=== PATIENT | male | born 1970 | race Caucasian/White ===

== ENCOUNTER 2023-09-19 15:52 | Outpatient (RCR) | payer BC, SELFPAY ==
[2023-09-19 16:03] VITALS: BP_SYST 132
--- NOTE | 2023-09-19 17:10 | OPREHPOC ---
Outpatient Therapy Plan of Care This is a Multidisciplinary Plan of Care that may contain components documented by all disciplines (PT, OT, and ST.) PT Problem 1 PT Problem #1 Knowledge Deficit PT Goal 1 Goal Patient to demonstrate independence with HEP Target Visit 4 PT Problem 2 PT Problem #2 Pain PT Goal 1 Goal 1. Patient to report highest pain at 4/10 2. Patient to report ability to complete work day with no increase in R shoulder pain Target Visit 8 PT Problem 3 PT Problem #3 Impaired Range of Motion PT Goal 1 Goal 1. Patient to demonstrate 160 deg of R shoulder flexion to reach into cabinets at PLOF 2. Patient to demonstrate functional R IR reach to lumbar spine Target Visit 8 PT Problem 4 PT Problem #4 Impaired Strength PT Goal 1 Goal Patient to demonstrate 5/5 R shoulder strength to return to work duties at PLOF Target Visit 10
--- NOTE | 2023-09-19 17:10 | PTOPEVAL1 ---
Assessment and note entered by Lily Mireles DPT Evaluation Information Assessment Status Evaluation Diagnosis R shoulder pain Onset 09/14/23 Subjective Information Patient reports he is having R shoulder pain. He reports over the summer he jumped up to close a door and felt a pull and a pop in his R shoulder. He reports pain is over the deltoid region. 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 Reaching into cabinets, reaching into his back pocket and bathing all increase his pain. He reports he has not had any imagining done. No RTMD scheduled. Reported Pain Level Pain Score 4: Self Report Assessment PT Clinical Summary Mr. Webster is a 53 year old male who presents to PT with R shoulder pain. He demonstrates decreased R shoulder ROM with GHJ hypomobility, decreased R shoulder strength and impaired posture limiting his ability to reach into cabinets, perform work duties, and reach into his back pocket. He would benefit from skilled PT to address impairments and return to PLOF. Plan of Care Interventions Electrical Stimulation,Hot Pack/Cold Pack,Manual Therapy,Neuro Re-education,Patient/Caregiver Educati,Therapeutic Activities,Therapeutic Exercise PT Services Indicated Yes Treatment Frequency and 2x weekly for 8 visits Duration These treatments will address the objective and functional deficits as defined above. The patient will be advanced safely and appropriately in order for the patient to progress towards his/her prior level of function. Additional exercises will be introduced and as well as a comprehensive home exercise program upon discharge, if needed, ?to ensure carryover of functional gains achieved in the clinic. This treatment plan has been reviewed and agreement upon by the patient.
--- NOTE | 2023-10-03 12:54 | PCPTNOTE ---
Patient cancelled session today due to weather.
[2023-10-20 16:00] VITALS: BP_SYST 132
--- NOTE | 2023-10-20 17:19 | OPREHPOC ---
Outpatient Therapy Plan of Care This is a Multidisciplinary Plan of Care that may contain components documented by all disciplines (PT, OT, and ST.) PT Problem 1 PT Problem #1 Knowledge Deficit PT Goal 1 Goal Patient to demonstrate independence with HEP Target Visit 4 Progress Met PT Problem 2 PT Problem #2 Pain PT Goal 1 Goal 1. Patient to report highest pain at 4/10 2. Patient to report ability to complete work day with no increase in R shoulder pain Target Visit 12 Comment progressing PT Problem 3 PT Problem #3 Impaired Range of Motion PT Goal 1 Goal 1. Patient to demonstrate 160 deg of R shoulder flexion to reach into cabinets at PLOF 2. Patient to demonstrate functional R IR reach to lumbar spine Target Visit 14 Comment progressing PT Problem 4 PT Problem #4 Impaired Strength PT Goal 1 Goal Patient to demonstrate 5/5 R shoulder strength to return to work duties at PLOF Target Visit 12 Progress Partially Met Comment progressing
--- NOTE | 2023-10-20 17:19 | PTOPREEVAL ---
Assessment and note entered by Lily Mireles DPT Evaluation Information Assessment Status Re-evaluation Diagnosis R shoulder pain Onset 09/14/23 Subjective Information patient reports he is feeling a lot better since start of PT but does notice he fatigues at the end of the day. he reports he does not have as much motion as the L side but does notice improvement. he reports compliance with HEP Reported Pain Level Pain Score 3: Self Report Assessment PT Clinical Summary Mr. Webster has attended 8 visits of skilled PT with good progression towards goals. he demonstrates improved active and passive ROM as well as improved strength but continued to lack end range flexion for return to reaching into cabinets for house hold chores. He would benefit from continued skilled PT to address remaining impairments and return to PLOF. Plan of Care Interventions Electrical Stimulation,Hot Pack/Cold Pack,Manual Therapy,Neuro Re-education,Patient/Caregiver Educati,Therapeutic Activities,Therapeutic Exercise PT Services Indicated Yes Treatment Frequency and continue 2x weekly for 4 additional visits Duration These treatments will address the objective and functional deficits as defined above. The patient will be advanced safely and appropriately in order for the patient to progress towards his/her prior level of function. Additional exercises will be introduced and as well as a comprehensive home exercise program upon discharge, if needed, ?to ensure carryover of functional gains achieved in the clinic. This treatment plan has been reviewed and agreement upon by the patient.
--- NOTE | 2023-11-03 16:43 | OPREHPOC ---
Outpatient Therapy Plan of Care This is a Multidisciplinary Plan of Care that may contain components documented by all disciplines (PT, OT, and ST.) PT Problem 1 PT Problem #1 Knowledge Deficit PT Goal 1 Goal Patient to demonstrate independence with HEP Target Visit 4 Progress Met PT Problem 2 PT Problem #2 Pain PT Goal 1 Goal 1. Patient to report highest pain at 4/10 2. Patient to report ability to complete work day with no increase in R shoulder pain Target Visit 12 Progress Met PT Problem 3 PT Problem #3 Impaired Range of Motion PT Goal 1 Goal 1. Patient to demonstrate 160 deg of R shoulder flexion to reach into cabinets at PLOF 2. Patient to demonstrate functional R IR reach to lumbar spine Target Visit 14 Progress Met PT Problem 4 PT Problem #4 Impaired Strength PT Goal 1 Goal Patient to demonstrate 5/5 R shoulder strength to return to work duties at PLOF Target Visit 12 Progress Met
--- NOTE | 2023-11-03 16:43 | PTOPDC ---
Assessment and note entered by Do Franklin, PT Evaluation Information Assessment Status Discharge Diagnosis R shoulder pain Onset 09/14/23 Subjective Information Emanuel Webster reports that today will his last visit. He feels his right shoulder has improved 100% since initiating PT and he is able to perform all daily and work activities pain free. Reported Pain Level Pain Score 0: Self Report Assessment PT Clinical Summary Emanuel Webster has completed 12 skilled PT visits for right shoulder pain. He is reporting a 100% improvement with no difficulty with daily or work activities. He demonstrates improved right shoulder AROM to functional range, improved right shoulder strength, and negative special tests. He does demonstrate poor upper body posture. He is independent in a home exercise program to improve posture. Plan of Care PT Services Indicated No
== END 2023-11-03 16:47 | disposition home or self-care (01) ==
LOC: CHSPT 15:52
PROVIDERS: PCP Family Medicine; Visit Provider Family Medicine
DX: M12.811 Other specific arthropathies, not elsewhere classified, right shoulder (principal)
CPT/HCPCS: 97110; 97140; 97150; 97161